=== PATIENT | female | born 1990 | race Caucasian/White ===

== ENCOUNTER 2018-11-01 15:51 | Emergency (ER) | payer BC ==
[2018-11-01] MEDS ORDERED: FAMOTIDINE 20 MG/50 ML IVPB 20 MG/50 ML MG IVPB ONE (15:59)
[2018-11-01] MEDS ORDERED: methylPREDNISolone NA SUCC 125 MG/2 ML VIAL IVPUSH ONE (15:59)
[2018-11-01 16:01] VITALS: BP 154/95; PULSE 90; TEMP 98.1; BMI 23.3
[2018-11-01] MEDS ORDERED: ALBUTEROL SO4 2.5/IPRATROPIUM 0.5 INH SOL 3 ML VIAL.NEB. NEB ONE ×3 (16:01→16:10)
--- NOTE | 2018-11-01 17:22 | PDOC ---
History of Present Illness - General Chief Complaint: Allergic Reaction Stated Complaint: ALLERGIC REACTION Time Seen by Provider: 11/01/18 15:58 History Source: Patient Exam Limitations: No Limitations - History of Present Illness Initial Comments: 11/01/18 17:17 28F with no PMH who presents to the ER with complaints of an allergic reaction. Pt states that she was in contact with a product that had apples in it and began to develop a rash and itchiness in her neck. She also had shortness of breath. She denies hx of anaphylaxis, intubation, CP, fever, chills, nausea, vomiting, but states that she feels like her breathing is difficult. Past History - Past Medical History Allergies/Adverse Reactions: Allergies Allergy/AdvReac Type Severity Reaction Status Date / Time apple Allergy Verified 11/01/18 16:01 peach Allergy Verified 11/01/18 16:01 tree nut Allergy Verified 11/01/18 16:01 Home Medications: Ambulatory Orders Metoclopramide HCl [Reglan] 10 mg PO ASDIR 11/01/18 COPD: No Psychiatric Problems: (ADHD) - Suicide/Smoking/Psychosocial Hx Smoking History: Never smoked Information on smoking cessation initiated: No Hx Alcohol Use: No Drug/Substance Use Hx: No Review of Systems - Review of Systems Able to Perform ROS?: Yes Is the patient limited Barbadian proficient: No Constitutional: No: Chills, Fever HEENTM: No: Blurred Vision Respiratory: Yes: Shortness of Breath, Wheezing Cardiac (ROS): No: Chest Pain ABD/GI: No: Nausea, Vomiting Integumentary: Yes: Erythema, Pruritus *Physical Exam - Vital Signs Last Vital Signs Temp Pulse Resp BP Pulse Ox 98.1 F 90 19 154/95 100 11/01/18 15:59 11/01/18 15:59 11/01/18 15:59 11/01/18 15:59 11/01/18 15:59 - Physical Exam General Appearance: Yes: Nourished, Appropriately Dressed, Mild Distress. No: Apparent Distress HEENT: positive: Normal Voice, Hearing Grossly Normal Respiratory/Chest: positive: Normal Breath Sounds, Labored Respiration. negative: Respiratory Distress Cardiovascular: positive: Regular Rhythm, S1, S2, Tachycardia Integumentary: positive: Normal Color, Dry, Warm ED Treatment Course - Medications Given in the ED: ED Medications Discontinued Medications Generic Name Dose Route Start Last Admin Trade Name Shantel PRN Reason Stop Dose Admin Albuterol/Ipratropium 3 amp 11/01/18 16:01 11/01/18 16:15 Duoneb - NEB 11/01/18 16:02 3 amp ONCE ONE Administration Diphenhydramine HCl 25 mg 11/01/18 15:59 11/01/18 16:00 Benadryl Injection - IVPUSH 11/01/18 16:00 25 mg ONCE ONE Administration Famotidine/Sodium Chloride 20 mg in 50 mls @ 100 mls/hr 11/01/18 15:59 16:04 Pepcid 20 Mg Premixed Ivpb - IVPB 11/01/18 16:28 100 mls/hr ONCE ONE Administration Methylprednisolone Sodium Succinate 125 mg 11/01/18 15:59 11/01/18 16:01 Solu-Medrol - IVPUSH 11/01/18 16:00 125 mg ONCE ONE Administration Medical Decision Making - Medical Decision Making 11/01/18 17:20 28F with no PMH who presents with a possible allergic reaction. Pt noted to be breathing uncomfortably without any appreciable wheezing on exam. Given benadryl , solumedrol, pepcid, and duonebs. 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 Pt had resolution of symptoms on reassessment. Will d/c with PCP f/u and will send medrol dose pack as well as epi pen to pharmacy. *DC/Admit/Observation/Transfer Diagnosis at time of Disposition: Anaphylaxis Qualifiers: Encounter type: initial encounter Qualified Code(s): T78.2XXA - Anaphylactic shock, unspecified, initial encounter - Discharge Dispostion Disposition: HOME Condition at time of disposition: Stable Decision to Admit order: No - Referrals Referrals: Edmundo Hicks MD [Primary Care Provider] - - Patient Instructions Printed Discharge Instructions: Anaphylaxis Additional Instructions: Your ER visit is not complete until your follow up with your primary care physician. Please follow up with your primary care physician in 1-2 days. Please return to the ER if you have any signs or symptoms of chest pain, shortness of breath, uncontrollable fever, chills, nausea, vomiting, numbness, tingling, or weakness in any part of your body, changes in vision, or slurred speech. Please take your medications as prescribed. Please return to the ER if symptoms persist, worsen, or new symptoms arise. - Post Discharge Activity
--- NOTE | 2018-11-01 17:26 | PDOC ---
Attending Attestation - Resident Resident Name: Phillip Stallworth - ED Attending Attestation I have performed the following: I have examined & evaluated the patient, The case was reviewed & discussed with the resident, I agree w/resident's findings & plan, Exceptions are as noted - HPI HPI: 11/01/18 17:21 Reviewed Residents HPI - Physicial Exam PE: 11/01/18 17:21 Reviewed Residents PE - Medical Decision Making 11/01/18 17:26 We'll appearing no apparent distress status post steroids and Benadryl patient feels much better. 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 We will refill her EpiPen and place her on a three-day course of prednisone. Findings, need for follow-up and strict return instructions discussed with patient.
== END 2018-11-01 18:08 | disposition home or self-care (01) ==
LOC: JER 15:51
PROC: 3E0F7GC Introduction of Other Therapeutic Substance into Respiratory Tract, Via Natural or Artificial Opening (ICD-10-PCS; principal; 2018-11-01)
PROC: 3E033GC Introduction of Other Therapeutic Substance into Peripheral Vein, Percutaneous Approach (ICD-10-PCS; 2018-11-01)
PROC: 3E033GC Introduction of Other Therapeutic Substance into Peripheral Vein, Percutaneous Approach (ICD-10-PCS; 2018-11-01)
PROC: 3E0333Z Introduction of Anti-inflammatory into Peripheral Vein, Percutaneous Approach (ICD-10-PCS; 2018-11-01)
DX: T78.04XA Anaphylactic reaction due to fruits and vegetables, initial encounter (principal); Z91.018 Allergy to other foods
CPT/HCPCS: 99282-25